=== PATIENT | female | born 1980 | race Caucasian/White ===

== ENCOUNTER 2019-05-09 22:09 | Emergency (ER) | payer MEDICAID ==
--- NOTE | 2019-05-09 22:22 | EDM.PDOC ---
ED HPI GENERAL MEDICAL PROBLEM - General Chief Complaint: Chest Pain Stated Complaint: chest and arm pain Time Seen by Provider: 05/09/19 22:15 Source of Information: Reports: Patient History Limitations: Reports: No Limitations - History of Present Illness INITIAL COMMENTS - FREE TEXT/NARRATIVE: Patient presents to ER with complaints of anterior chest pain that radiates to her right axilla and right arm. Was at the movies tonight and started having discomfort. At first thought it was related to eating potato chips but "now feels like a heart attack". She does admit that she is more comfortable sitting forward. Has had upper respiratory symptoms for a week or so, has been coughing. Admits that the pain is worse with coughing and taking deep breaths. No previous cardiac concerns. Has had pleurisy in the past. No fevers. No shortness of breath but feels she is limited with taking deep breaths due to the pain. Onset: Today, Sudden Duration: Hour(s): Location: Reports: Chest, Upper Extremity, Right Quality: Reports: Sharp, Stabbing Severity: Moderate Improves with: Reports: Rest Worsens with: Reports: Movement Associated Symptoms: Reports: Chest Pain, Cough, Shortness of Breath. Denies: cough w sputum, Fever/Chills, Loss of Appetite, Nausea/Vomiting, Syncope RIGHT ARM AND MIDCHEST Pain Score (Numeric/FACES): 6 - Related Data Allergies Allergy/AdvReac Type Severity Reaction Status Date / Time cefdinir [From Omnicef] Allergy Abdominal Verified 05/09/19 22:10 Pain Home Meds: Home Meds Acetaminophen [Tylenol Extra Strength] 1,000 mg PO ASDIRECTED PRN 12/28/13 [ History] Past Medical History Respiratory History: Reports: Other (See Below) Other Respiratory History: pleurisy Social & Family History - Family History Family Medical History: Noncontributory - Tobacco Use Smoking Status *Q: Former Smoker ED ROS GENERAL - Review of Systems Review Of Systems: See Below Constitutional: Reports: Chills, Malaise, Weakness, Fatigue. Denies: Fever, Decreased Appetite HEENT: Reports: Rhinitis, Sinus Problem. Denies: Ear Pain, Throat Pain Respiratory: Reports: Pleuritic Chest Pain, Cough. Denies: Sputum Cardiovascular: Reports: Chest Pain. Denies: Edema, Lightheadedness Endocrine: Reports: Fatigue GI/Abdominal: Denies: Abdominal Pain, Constipation, Diarrhea, Nausea, Vomiting : Reports: No Symptoms Musculoskeletal: Reports: No Symptoms Skin: Reports: No Symptoms Neurological: Reports: No Symptoms ED EXAM, GENERAL - Physical Exam Exam: See Below Exam Limited By: No Limitations General Appearance: Alert, WD/WN, Mild Distress Ears: Normal External Exam, Normal TMs Nose: Normal Inspection, Normal Mucosa, No Blood Throat/Mouth: Normal Inspection, Normal Oropharynx Head: Normocephalic Neck: Normal Inspection, Supple, Non-Tender Respiratory/Chest: No Respiratory Distress, Lungs Clear, Normal Breath Sounds Cardiovascular: Regular Rate, Rhythm, No Edema GI/Abdominal: Normal Bowel Sounds, Soft, Non-Tender Extremities: Normal Inspection, No Pedal Edema Neurological: Alert, Oriented Skin Exam: Warm, Dry Course - Vital Signs Last Recorded V/S: Last Vital Signs Temp 97.3 F 05/09/19 22:35 Pulse 83 05/09/19 22:35 Resp 20 05/09/19 22:35 BP 119/66 05/09/19 22:35 Pulse Ox 99 05/09/19 22:35 - Orders/Labs/Meds Orders: Active Orders 24 hr Category Date Time Status Chest 2V [CR] Stat Exams 05/09/19 22:12 Taken EKG 12 Lead [EK] Stat Ther 05/09/19 22:12 Ordered Labs: Laboratory Tests 05/09/19 05/09/19 Range/Units 22:12 22:12 WBC 9.5 (5.0-10.0) 10^3/uL RBC 3.82 L (4.00-5.50) 10^6/uL Hgb 12.1 (12.0-16.0) g/dL Hct 36.1 L (37.0-47.0) % MCV 94.5 H (82.0-94.0) fL MCH 31.7 (27.0-32.0) pg MCHC 33.5 (33.0-38.0) g/dL RDW Coeff of Elise 13.0 (11.0-15.0) % Plt Count 215 (150-400) 10^3/uL Neut % (Auto) 72.7 (35-85) % Lymph % (Auto) 18.7 (10-55) % [place] % (Auto) 7.3 (0-16) % Eos % (Auto) 1.0 (0-5) % Baso % (Auto) 0.3 (0-3) % Neut # (Auto) 6.89 (1.80-7.00) 10^3/uL Lymph # (Auto) 1.77 (1.00-4.80) 10^3/uL [place] # (Auto) 0.69 (0.00-0.80) 10^3/uL Eos # (Auto) 0.09 (0.00-0.45) 10^3/uL Baso # (Auto) 0.03 10^3/uL Sodium 141 (136-145) mEq/L Potassium 3.3 L (3.5-5.0) mEq/L Chloride 104 (98-106) mEq/L Carbon Dioxide 26 (21-32) mmol/L BUN 20 H (7-18) mg/dL Creatinine 0.7 (0.6-1.0) mg/dL Est Cr Clr Drug Dosing 86.18 mL/min Estimated GFR (MDRD) > 60 (>=60) mL/min Glucose 101 H (75-99) mg/dL Calcium 8.6 (8.4-10.1) mg/dL Lactate Dehydrogenase 156 (100-190) U/L Creatine Kinase 78 (21-215) U/L Troponin I < 0.017 (0.00-0.06) ng/mL C-Reactive Protein < 0.2 L (0.2-0.8) mg/dL - Re-Assessments/Exams Free Text/Narrative Re-Assessment/Exam: 05/09/19 22:47 Labs are all normal. EKG normal. Chest xray normal Departure - Departure Time of Disposition: 22:49 Disposition: Home, Self-Care 01 Condition: Good Clinical Impression: Chest wall pain, Pleurisy Referrals: PCP,None [Primary Care Provider] - Forms: ED Department Discharge Additional Instructions: 1. Rest. 2. Push fluids 3. Prednisone 20 mg- 2 tabs daily for 5 days 4. Follow up for any persisting pain or concern. - My Orders Last 24 Hours: My Active Orders 05/09/19 22:12 Chest 2V [CR] Stat EKG 12 Lead [EK] Stat - Assessment/Plan Last 24 Hours: My Active Orders 05/09/19 22:12 Chest 2V [CR] Stat EKG 12 Lead [EK] Stat
[2019-05-09 22:36] VITALS: BP 119/66; PULSE 83
[2019-05-09 22:45] LABS: CHLORIDE,CL 104 mEq/L (98-106); SODIUM,NA 141 mEq/L (136-145)
[2019-05-09] MEDS ORDERED: Ketorolac 60 MG/2 ML SDV IM ONE (22:47)
== END 2019-05-09 23:10 | disposition home or self-care (01) ==
LOC: CC.ED 22:09
DX: R07.89 Other chest pain (principal); R09.1 Pleurisy; Z88.1 Allergy status to other antibiotic agents; Z87.891 Personal history of nicotine dependence
CPT/HCPCS: 36415; 71046; 80048; 82550; 83615; 84484; 85025; 86140; 93005; 96372; 99285-25; J1885

== ENCOUNTER → 2020-11-24 | Day surgery (SDC) | payer MEDICAID ==
[~2020-11-24] MED LIST: Ketamine 200 MG/20 ML MDV ONE; Lactated Ringers 1,000 ML IV SCH; Midazolam 1 MG/ML 2 ML SDV ONE; Ondansetron 4 MG/2 ML SDV ONE; Propofol 200 MG/20 ML SDV ONE; fentaNYL 100 MCG/2 ML SDV ONE
[2020-11-24 12:23] VITALS: BP 102/69; PULSE 93
--- NOTE | 2020-11-24 14:00 | OR ---
DATE OF OPERATION: 11/24/2020 PREOPERATIVE DIAGNOSIS: CHRONIC ABDOMINAL PAIN. POSTOPERATIVE DIAGNOSIS: CHRONIC ABDOMINAL PAIN. SURGEON: Chris Westfall MD PROCEDURE: DIAGNOSTIC ESOPHAGOGASTRODUODENOSCOPY WITH BIOPSIES X4, MORENITA. ANESTHESIA: MAC. COMPLICATIONS: None. SPECIMEN: 1. Duodenal bulb biopsy x1. 2. Antral biopsy x2. 3. Fundal biopsy x1. 4. Antral MORENITA. FINDINGS: 1. Full-length diagnostic EGD. 2. Minimal chronic-appearing gastritis, distal fundus/antrum. 3. No active or acute peptic ulcer disease. 4. No signs of spontaneous reflux. RECOMMENDATIONS: Medical followup with Salvatore Bess. INDICATIONS: The patient is a 40-year-old with ongoing issues with chronic abdominal pain. She has had multiple diagnostic endeavors and she is sent for a diagnostic EGD. DESCRIPTION OF PROCEDURE: The patient was prepped and draped, placed in the left lateral decubitus position with head of the bed elevated. A lubricated Olympus gastroscope was inserted over a bite-block, advanced to cricopharyngeus area, and easily intubated into the esophagus. The esophageal lining was completely normal in its entire course. The Z-line was crisp and sharp at 40 cm. There was no spontaneous reflux seen. No distal esophagitis, stricturing, ulceration, or Serrato's changes. The scope was advanced into the stomach, through the pylorus, and into the second portion of the duodenum. This was benign. The duodenal bulb was unremarkable. Biopsy was taken. The scope was brought back into the stomach and retroflexed. The upper fundus and cardia were completely benign. Upon straightening from approximately the midportion of the fundus and through the antrum, the patient had a very mild chronic-appearing gastritis. We did do biopsies at the fundus and 2 at the antrum along with a CLOtest. No other signs of peptic ulcer disease were seen. Air was then suctioned and the scope removed without complication. DMITRY/LISSA /[id number]
== END ==
LOC: CC.SDS 10:27
PROVIDERS: ATTEND Family Medicine
DX: K29.50 Unspecified chronic gastritis without bleeding (principal); Z88.8 Allergy status to other drugs, medicaments and biological substances; Z79.899 Other long term (current) drug therapy; Z98.890 Other specified postprocedural states; Z87.891 Personal history of nicotine dependence
CPT/HCPCS: 00731; 36415; 84703; 87081; J2250; J2405; J2704; J3010

== ENCOUNTER 2021-06-24 19:53 | Emergency (ER) | payer MEDICAID ==
--- NOTE | 2021-06-24 20:29 | EDM.PDOC ---
ED HPI GENERAL MEDICAL PROBLEM - General Chief Complaint: General Stated Complaint: fever, sore throat, cough, Time Seen by Provider: 06/24/21 20:10 Source of Information: Reports: Patient History Limitations: Reports: No Limitations - History of Present Illness INITIAL COMMENTS - FREE TEXT/NARRATIVE: Patient presents to the Ed for cough, body aches, chills, feeling warm, sore throat since yesterday. She is unvaccinated to covid and influenza. her daughter had covid 2 weeks ago. 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 she was negative and went back to work. Multiple children have upper respiratory illnesses, cough fevers at daycare. patient states she took cold medication this morning. No tylenol or motrin in the last 4 hours. she states is is being treated for lupus with hydroxychloroquine but does not have the diagnosis of lupus because " they can't figure it out". she is eating and drining but only drinking mountain dew, no water. no diarrhea. no rashes or lesions, no leg pain or productive sputum Onset Date: 06/23/21 Duration: Day(s):, Getting Worse Associated Symptoms: Reports: Cough, Fever/Chills, Headaches, Malaise - Related Data Allergies Allergy/AdvReac Type Severity Reaction Status Date / Time cefdinir [From Omnicef] AdvReac Abdominal Verified 06/24/21 20:32 Pain Home Meds: Home Meds diphenhydrAMINE HCL [Benadryl Allergy] 25 mg PO DAILY PRN 11/22/20 [History] Albuterol Sulfate [Albuterol Sulfate Hfa] 8.5 gm IH Q4HR PRN #1 hfa.aer.ad 06/24/21 [Rx] Benzonatate [Tessalon Perles] 100 mg PO TID PRN #30 cap 06/24/21 [Rx] Gabapentin [Neurontin] 100 mg PO BID 06/24/21 [History] Past Medical History - Past Health History Medical/Surgical History: Denies Medical/Surgical History Respiratory History: Reports: Other (See Below) Other Respiratory History: pleurisy Other Immunologic History: being treated for lupus, no diffinitive diagnosis Social & Family History - Family History Family Medical History: No Pertinent Family History - Tobacco Use Tobacco Use Status *Q: Current Every Day Tobacco User - Alcohol Use Alcohol Use Frequency: Rarely - Recreational Drug Use Recreational Drug Use: No Drug Use in Last 12 Months: No ED ROS GENERAL - Review of Systems Review Of Systems: See Below Constitutional: Reports: Chills, Malaise, Weakness, Fatigue HEENT: Reports: Ear Pain, Rhinitis, Throat Pain. Denies: Throat Swelling Respiratory: Reports: Cough. Denies: Shortness of Breath, Wheezing, Sputum Cardiovascular: Denies: Chest Pain, Dyspnea on Exertion, Edema, Syncope Endocrine: Reports: Fatigue GI/Abdominal: Reports: No Symptoms. Denies: Abdominal Pain, Constipation, Diarrhea, Nausea, Vomiting : Reports: No Symptoms Musculoskeletal: Reports: Muscle Pain Skin: Reports: No Symptoms Neurological: Denies: Pre-Existing Deficit, Trouble Speaking, Difficulty Walking Psychiatric: Reports: No Symptoms Hematologic/Lymphatic: Reports: No Symptoms ED EXAM, GENERAL - Physical Exam Exam: See Below Exam Limited By: No Limitations General Appearance: Alert, WD/WN, No Apparent Distress, Other (cooperative but appears angry) Eye Exam: Bilateral Eye: Abnormal EOM, EOMI, Normal Inspection, PERRL Ears: Normal External Exam Nose: Normal Inspection Throat/Mouth: Normal Lips, Normal Voice, No Airway Compromise, Other (dry tongue with white appearance no pharyngeal exudate or tonsillar swelling) Head: Atraumatic Neck: Normal Inspection Respiratory/Chest: No Respiratory Distress, Lungs Clear, Normal Breath Sounds, No Accessory Muscle Use, Chest Non-Tender Cardiovascular: Regular Rate, Rhythm, No Edema, Tachycardia Extremities: Normal Range of Motion, No Pedal Edema Neurological: Alert, Oriented, CN II-XII Intact, Normal Cognition Course - Orders/Labs/Meds Orders: Active Orders 24 hr Category Date Time Status Chest 2V [CR] Stat Exams 06/24/21 20:34 Taken Isolation [COMM] Routine Oth 06/24/21 20:12 Active Isolation [COMM] Routine Oth 06/24/21 20:12 Active Labs: Laboratory Tests 06/24/21 Range/Units 20:12 SARS CoV-2 RNA Rapid HOLLY Negative (NEGATIVE) - Radiology Interpretation Free Text/Narrative:: no acute seen, preliminary read only - Re-Assessments/Exams Free Text/Narrative Re-Assessment/Exam: 06/24/21 20:32 will get a influenza, rsv, covid test due to her recent exposure at home to coivd positive and daycare worker. otherwise appears wel. currently drinking a mountain dew, advised should be drinking more water, clinically slightly dehydrated. 06/24/21 21:47 advised testing was normal. will send with tessalon, albuterol work note for two days. close follow up give lupus and pleurisy diagnosis. Been sick less than 36 hours, unlikely bacterial Departure - Departure Time of Disposition: 21:46 Disposition: Home, Self-Care 01 Condition: Good Clinical Impression: Viral URI with cough, Dehydration - Discharge Information *PRESCRIPTION DRUG MONITORING PROGRAM REVIEWED*: No *COPY OF PRESCRIPTION DRUG MONITORING REPORT IN PATIENT [place]: No Prescriptions: Albuterol Sulfate [Albuterol Sulfate Hfa] 8.5 gm IH Q4HR PRN #1 hfa.aer.ad PRN Reason: Shortness Of Breath Benzonatate [Tessalon Perles] 100 mg PO TID PRN #30 cap PRN Reason: Cough Instructions: Viral Respiratory Infection, [id number], Dehydration, Adult, [id number] Forms: ED Department Discharge, ED Return to Work/School Form Additional Instructions: Testing today was negative for influenza, covid, rsv and strep. chest x-ray did not reveal a pneumonia. Treat fever, body aches and cough conservatively with fever, cold medication, cough medication. you were given a prescription for an inhaler and tessalon to help with cough and shortness of breath. Vrial upper respiratory infections as typical this time of year. continue to wear your mask. If symptoms persist after 5-7 days, bacterial infection can present and you should recheck with your doctor due to your lupus. Hydrate well - My Orders Last 24 Hours: My Active Orders 06/24/21 20:12 Isolation [COMM] Routine Isolation [COMM] Routine 06/24/21 20:34 Chest 2V [CR] Stat - Assessment/Plan Last 24 Hours: My Active Orders 06/24/21 20:12 Isolation [COMM] Routine Isolation [COMM] Routine 06/24/21 20:34 Chest 2V [CR] Stat
[2021-06-24 23:16] VITALS: BP 129/84; PULSE 107
== END 2021-06-24 21:55 | disposition home or self-care (01) ==
LOC: CC.ED 19:53
DX: J06.9 Acute upper respiratory infection, unspecified (principal); E86.0 Dehydration; Z20.822 Contact with and (suspected) exposure to COVID-19; Z88.1 Allergy status to other antibiotic agents; Z72.0 Tobacco use
CPT/HCPCS: 71046; 87430; 87804; 87807; 99283-25; U0002

== ENCOUNTER 2024-02-01 20:25 | Emergency (ER) | payer MEDICAID ==
[2024-02-01] MEDS: Sodium Chloride 0.9% 1,000 ML IV ONE (20:40)
[2024-02-01] MEDS: Metoclopramide 10 MG/2 ML SDV IVPUSH ONE (20:44)
[2024-02-01] MEDS: Ketorolac 30 MG/ML SDV IVPUSH ONE (20:47)
[2024-02-01] MEDS: diphenhydrAMINE 50 MG/ML SDV IVPUSH ONE (20:51)
[2024-02-01 21:22] VITALS: BP 103/63; PULSE 76
== END 2024-02-01 21:50 | disposition home or self-care (01) ==
LOC: CC.ED 20:25
DX: G43.909 Migraine, unspecified, not intractable, without status migrainosus (principal); Z88.1 Allergy status to other antibiotic agents; Z79.899 Other long term (current) drug therapy
CPT/HCPCS: 96361; 96374; 96375; 99283; J1200; J1885; J2765; J3360; J7030